=== PATIENT | male | born 1990 | race Caucasian/White ===

== ENCOUNTER 2019-01-20 10:57 | Emergency (ER) | payer BC ==
--- NOTE | 2019-01-20 11:09 | EDM.PDOC ---
ED HPI GENERAL MEDICAL PROBLEM - General Chief Complaint: Neuro Symptoms/Deficits Stated Complaint: NUMBNESS ON SIDE OF FACE Time Seen by Provider: 01/20/19 10:58 Source of Information: Reports: Patient History Limitations: Reports: No Limitations - History of Present Illness INITIAL COMMENTS - FREE TEXT/NARRATIVE: HISTORY AND PHYSICAL: Stroke Code was called upon patient arrival; Dr Ambrose was directly involved in this case. History of present illness: Patient is a 28-year-old male who presents to the emergency room with complaints of left-sided facial numbness/tingling and paralysis of the facial muscles. He states over he woke up approximately 2:30 this morning had noticed the symptoms. He had done some online research and believes he has Treadwell's palsy or a stroke. He denies any recent head injury, trauma or falls. He denies any weakness, slurred speech, headache, change in vision or lower/upper body extremity weakness/deficits. He denies any fever, chills, chest pain, shortness of breath or cough. Denies any abdominal pain, nausea, vomiting, diarrhea or constipation. Has been eating and drinking appropriately. No recent illness or cough and cold-like symptoms. Review of systems: As per history of present illness and below otherwise all systems reviewed and negative. Past medical history: As per history of present illness and as reviewed below otherwise noncontributory. Surgical history: As per history of present illness and as reviewed below otherwise noncontributory. Social history: See social history for further information Family history: As per history of present illness and as reviewed below otherwise noncontributory. Physical exam: General: Well-developed and well-nourished 28-year-old male. Alert and oriented. Nontoxic appearing and in no acute distress. HEENT: Atraumatic, normocephalic, pupils equal and reactive bilaterally, negative for conjunctival pallor or scleral icterus, mucous membranes moist, TMs normal bilaterally, throat clear, neck supple, nontender, trachea midline. No drooling or trismus noted. No meningeal signs. No hot potato voice noted. SEE Neuro for details. Lungs: Clear to auscultation, breath sounds equal bilaterally, chest nontender. Heart: S1S2, regular rate and rhythm without overt murmur Abdomen: Soft, nondistended, nontender. Negative for masses or hepatosplenomegaly. Negative for costovertebral tenderness. Pelvis: Stable nontender. Genitourinary: Deferred. Rectal: Deferred. Skin: Intact, warm, dry. No lesions or rashes noted. Extremities: Atraumatic, moves all extremities per self without difficulty or deficits. No neurological or focal deficits noted, even and steady gait, negative for cords or calf pain. Neurovascular unremarkable. Neuro: Awake, alert, oriented. There is slight weakness and asymmetry of the left side of his face. Unable to lift the brow or furrow. Unable to close the left eye fully. NO slurred speech, drooling, or tongue deviation. Deep tendon reflexes intact. NO neurological deficits. Cerebellum unremarkable. Motor and sensory unremarkable throughout. Exam nonfocal. Notes: GCS: 15, NIH: 0. There is slight weakness and asymmetry of the left side of his face. Unable to lift the brow or close the left eye fully. Lab work is unremarkable. Head CT is negative. Vital signs remain stable. Patient remains asymptomatic with the exception of the facial paralysis on the left. Patient's symptoms correlate with Treadwell's palsy. Give prednisone and valacyclovir. Supportive care measures were reviewed and discussed. Voices understanding and is agreeable to plan of care. Denies any further questions or concerns at this time. Diagnostics: CBC, CMP, Head CT Therapeutics: None Prescription: Prednisone Valacyclovir Impression: Treadwell Palsy Plan: 1. Please take the medications as prescribed. 2. During the daytime, glasses may be worn and artificial tears can be used as needed. Overnight, and ophthalmic lubricant should be applied in the eyelid taped closed. Avoid using an eye patch. 3. Please follow-up with your primary care provider next week for further evaluation and management. Return to the ED as needed and as discussed. Definitive disposition and diagnosis as appropriate pending reevaluation and review of above. - Related Data Allergies Allergy/AdvReac Type Severity Reaction Status Date / Time No Known Allergies Allergy Verified 01/20/19 11:11 Home Meds: Home Meds FLUoxetine HCl [Prozac] 20 mg PO DAILY 10/04/18 [History] Past Medical History - Past Health History Medical/Surgical History: Denies Medical/Surgical History Gastrointestinal History: Reports: Chronic Constipation, Hemorrhoids Psychiatric History: Reports: Anxiety - Past Surgical History Head Surgeries/Procedures: Reports: None HEENT Surgical History: Reports: Oral Surgery ED ROS GENERAL - Review of Systems Review Of Systems: ROS reveals no pertinent complaints other than HPI. ED EXAM, GENERAL - Physical Exam Exam: See Below (See dictation) Course - Vital Signs Last Recorded V/S: Last Vital Signs Temp 97.1 F 01/20/19 11:11 Pulse 75 01/20/19 12:15 Resp 18 01/20/19 12:15 BP 124/88 01/20/19 12:15 Pulse Ox 97 01/20/19 12:15 - Orders/Labs/Meds Labs: Laboratory Tests 01/20/19 01/20/19 Range/Units 11:18 11:18 WBC 5.93 (4.0-11.0) K/uL RBC 5.63 (4.50-5.90) M/uL Hgb 16.3 (13.0-17.0) g/dL Hct 46.3 (38.0-50.0) % MCV 82.2 (80.0-98.0) fL MCH 29.0 (27.0-32.0) pg MCHC 35.2 (31.0-37.0) g/dL RDW Std Deviation 39.2 (28.0-62.0) fl RDW Coeff of Allie 13 (11.0-15.0) % Plt Count 177 (150-400) K/uL MPV 9.70 (7.40-12.00) fL Neut % (Auto) 68.3 (48.0-80.0) % Lymph % (Auto) 25.5 (16.0-40.0) % [place] % (Auto) 4.6 (0.0-15.0) % Eos % (Auto) 1.3 (0.0-7.0) % Baso % (Auto) 0.3 (0.0-1.5) % Neut # (Auto) 4.1 (1.4-5.7) K/uL Lymph # (Auto) 1.5 (0.6-2.4) K/uL [place] # (Auto) 0.3 (0.0-0.8) K/uL Eos # (Auto) 0.1 (0.0-0.7) K/uL Baso # (Auto) 0.0 (0.0-0.1) K/uL Nucleated RBC % 0.0 /100WBC Nucleated RBCs # 0 K/uL Sodium 140 (136-148) mmol/L Potassium 3.8 (3.5-5.1) mmol/L Chloride 104 (98-107) mmol/L Carbon Dioxide 24.7 (21.0-32.0) mmol/L BUN 18 (7.0-18.0) mg/dL Creatinine 1.1 (0.8-1.3) mg/dL Est Cr Clr Drug Dosing TNP Estimated GFR (MDRD) > 60.0 ml/min Glucose 110 H (74-106) mg/dL Calcium 9.0 (8.5-10.1) mg/dL Total Bilirubin 0.8 (0.2-1.0) mg/dL AST 14 L (15-37) IU/L ALT 26 (14-63) IU/L Alkaline Phosphatase 74 (46-116) U/L Total Protein 7.6 (6.4-8.2) g/dL Albumin 4.0 (3.4-5.0) g/dL Globulin 3.6 (2.6-4.0) g/dL Albumin/Globulin Ratio 1.1 (0.9-1.6) Departure - Departure Time of Disposition: 12:03 Disposition: Home, Self-Care 01 Clinical Impression: Treadwell palsy - Discharge Information Instructions: Treadwell Palsy, Adult Referrals: PCP,Unknown [Primary Care Provider] - Forms: ED Department Discharge Additional Instructions: The following information is given to patients seen in the emergency department who are being discharged to home. This information is to outline your options for follow-up care. We provide all patients seen in our emergency department with a follow-up referral. The need for follow-up, as well as the timing and circumstances, are variable depending upon the specifics of your emergency department visit. If you don't have a primary care physician on staff, we will provide you with a referral. We always advise you to contact your personal physician following an emergency department visit to inform them of the circumstance of the visit and for follow-up with them and/or the need for any referrals to a consulting specialist. The emergency department will also refer you to a specialist when appropriate. This referral assures that you have the opportunity for follow-up care with a specialist. All of these measure are taken in an effort to provide you with optimal care, which includes your follow-up. Under all circumstances we always encourage you to contact your private physician who remains a resource for coordinating your care. When calling for follow-up care, please make the office aware that this follow-up is from your recent emergency room visit. If for any reason you are refused follow-up, please contact the [facility] Emergency Department at and asked to speak to the emergency department charge nurse. [facility] [address] [place] [id number] [facility] [address] [place] [phone] 1. Please take the medications as prescribed. 2. During the daytime, glasses may be worn and artificial tears can be used as needed. Overnight, and ophthalmic lubricant should be applied in the eyelid taped closed. Avoid using an eye patch. 3. Please follow-up with your primary care provider next week for further evaluation and management. Return to the ED as needed and as discussed.
--- NOTE | 2019-01-20 11:25 | CT ---
EXAMINATION: Non contrast CT head. Coronal and sagittal reformats. HISTORY: Left-sided facial paralysis FINDINGS: No evidence of intra or extra axial hemorrhage, mass, midline shift, hydrocephalus or edema. No hypoattenuation changes in the major vascular territories to suggest acute infarct. No abnormal intracranial calcifications are detected. No evidence of substantial vascular calcifications. The paranasal sinuses and mastoid air cells are well aerated without substantial findings. Orbits and globes are symmetric. Pituitary fossa appears unremarkable. Slight cystic prominence within the right cerebellar pontine angle, underlying small arachnoid cyst is not excluded. The calvarium is intact. No evidence of skull fracture. IMPRESSION: No acute intracranial findings. Above findings were called to ER at 11:21 AM.
[2019-01-20 11:48] LABS: CHLORIDE,CL 104 mmol/L (98-107); SODIUM,NA 140 mmol/L (136-148)
== END 2019-01-20 12:15 | disposition home or self-care (01) ==
LOC: MW.ED 10:57
DX: G51.0 Bell's palsy (principal); F41.9 Anxiety disorder, unspecified; Z79.899 Other long term (current) drug therapy
CPT/HCPCS: 36415; 70450; 70450-26; 80053; 85025; 93005; 99282; 99284-25